=== PATIENT | female | born 1995 | race Two or more races ===

== ENCOUNTER 2021-08-23 20:35 | Emergency (ER) | payer OTHER ==
[~2021-08-23] VITALS: Ht 160 cm; Wt 59.0 kg
[2021-08-23] MEDS ORDERED: diphenhydrAMINE HCL 50 MG/ML VIAL ONE (21:20)
[2021-08-23] MEDS ORDERED: HALOPERIDOL LACTATE INJ 5 MG/ML VIAL ONE (21:21)
[2021-08-23] MEDS ORDERED: LORAZEPAM INJ 2 MG/ML VIAL ONE (21:21)
--- NOTE | 2021-08-23 21:23 | NUR ---
TO ER BED 15. [id number] ACCOMPANIED BY [employer] C/O AGITATION AND POSSIBLE INGESTION OF PILLS AND ALCOHOL. NOT IN RESPIRATORY DISTRESS. DENIES CHEST PAIN. DENIES SI. CHANGED INTO GOWN. CONNECTED TO MONITOR. SITTER W/IN SIGHT. AWAITNG MD PORTER
--- NOTE | 2021-08-23 21:25 | NUR ---
URINE SAMPLE COLLECTED AND SENT TO LAB
[2021-08-23] MEDS ORDERED: LORAZEPAM INJ 2 MG/ML VIAL IM ONE ×2 (21:30→22:00)
[2021-08-23] MEDS ORDERED: HALOPERIDOL LACTATE INJ 5 MG/ML VIAL IM ONE (21:30)
[2021-08-23] MEDS ORDERED: diphenhydrAMINE HCL 50 MG/ML VIAL IM ONE (21:30)
[2021-08-23 22:07] LABS: BILIRUBIN,URINE NEGATIVE (NEGATIVE); COLOR,URINE YELLOW (YELLOW); LEUKOCYTE ESTERASE ,URINE NEGATIVE (NEGATIVE); NITRITE, URINE NEGATIVE (NEGATIVE); PH,URINE 7.5 (5.0-8.0); PROTEIN,URINE NEGATIVE (NEGATIVE); UGLUCOSE NEGATIVE (NEGATIVE); UROBILINOGEN,URINE 0.2 EU/dL (0.2)
--- NOTE | 2021-08-23 22:16 | NUR ---
PT SLEEPING AT THIS TIME. VSS
[2021-08-23 22:46] LABS: BASOPHILS # (AUTO) 0.1 K/uL (0.0-0.2); BASOPHILS % (AUTO) 1.2 % (0.0-2.0); EOSINOPHILS % (AUTO) 0.5 % (0.0-6.0); HEMATOCRIT 40 % (33-45); HEMOGLOBIN 13.3 g/dL (11.5-14.8); LYMPHOCYTES # (AUTO) 2.3 K/uL (0.8-4.8); LYMPHOCYTES % (AUTO) 38.7 % (20.0-44.0); MEAN CORPUSCULAR HGB CONC 34 g/dl (31.0-36.0); MEAN CORPUSCULAR VOLUME 94 fL (82-100); MONOCYTES # (AUTO) 0.4 K/uL (0.1-1.30); MONOCYTES % (AUTO) 6.2 % (2.0-12.0); NEUTROPHILS # (AUTO) 3.1 K/uL (1.8-8.9); NEUTROPHILS % (AUTO) 53.4 % (43.0-81.0); PLATELET COUNT (AUTO) 285 K/uL (150-450); WHITE BLOOD COUNT (AUTO) 5.9 K/uL (4.3-11.0)
[2021-08-23 23:09] LABS: ALANINE AMINOTRANSFERASE 20 U/L (12-78); ALBUMIN 3.7 g/dL (3.4-5.0); ALCOHOL, BLOOD 280 mg/dL (0-0); ALKALINE PHOSPHATASE 55 U/L (46-116); ASPARTATE AMINOTRANSFERASE 23 U/L (15-37); BILIRUBIN,DIRECT 0.1 mg/dL (0.0-0.2); BILIRUBIN,TOTAL 0.2 mg/dL (0.2-1.0); CALCIUM, SERUM 8.1 mg/dL (8.5-10.1); CARBON DIOXIDE 28 mmol/L (21-32); CHLORIDE 107 mmol/L (98-107); CREATININE 0.6 mg/dL (0.6-1.3); GLUCOSE 90 mg/dL (74-106); POTASSIUM 3.2 mmol/L (3.5-5.1); SODIUM SERUM 144 mmol/L (136-145); TOTAL PROTEIN, SERUM 7.1 g/dL (6.4-8.2); UREA NITROGEN, BLOOD 10 mg/dL (7-18)
[2021-08-23 23:12] LABS: ACETAMINOPHEN < 2 ug/ml (10-30)
--- NOTE | 2021-08-24 03:12 | NUR ---
Patient discharged to home in stable condition. Written and verbal after care instructions given. Patient verbalizes understanding of instruction.
[2021-08-24 05:19] VITALS: BP 123/61
== END 2021-08-24 03:15 | disposition home or self-care (01) ==
LOC: ER 20:38
DX: R45.1 Restlessness and agitation (principal); F10.129 Alcohol abuse with intoxication, unspecified; Y90.8 Blood alcohol level of 240 mg/100 ml or more
CPT/HCPCS: 36415; 80048; 80076; 80143; 80307; 80320; 81003; 84702; 85025; 96372 ×2; 99284; J1200; J1630; J2060; G0480

== ENCOUNTER 2021-10-18 06:20 | Emergency (ER) | payer OTHER ==
[~2021-10-18] VITALS: Ht 165.1 cm; Wt 68.0 kg
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
[2021-10-18] MEDS ORDERED: ACETAMINOPHEN 325 MG TABLET ONE (07:10)
--- NOTE | 2021-10-18 07:22 | NUR ---
PT WAS DISCHARGED WITHOUT SIGNING DISCHARGE PAPERWORK, PT LEFT THE EMERGENCY ROOM WALKING. PT WAS VERBALLY AGRESSIVE TOWARDS STAFF AND ESCORTED OUT BY SECURITY.
[2021-10-18] MEDS ORDERED: ACETAMINOPHEN 325 MG TABLET PO ONE (07:30)
[2021-10-18 07:38] VITALS: BP 107/70
== END 2021-10-18 07:38 | disposition home or self-care (01) ==
LOC: ER 06:44
DX: S61.305A Unspecified open wound of left ring finger with damage to nail, initial encounter (principal); S09.90XA Unspecified injury of head, initial encounter; M25.562 Pain in left knee; Y08.89XA Assault by other specified means, initial encounter; Y93.89 Activity, other specified; Y92.89 Other specified places as the place of occurrence of the external cause; Y99.8 Other external cause status